=== PATIENT | male | born 1965 | race Caucasian/White ===

== ENCOUNTER 2016-11-18 12:55 | Emergency (ER) | payer MEDICAID ==
[2016-11-18 13:24] VITALS: BP 156/106
[2016-11-18] MEDS ORDERED: Ketorolac 10 MG Tab PO ONE (13:49)
--- NOTE | 2016-11-18 13:51 | EDM.PDOC ---
ED HPI GENERAL MEDICAL PROBLEM - General Chief Complaint: Neck Problem Stated Complaint: NECK PAIN Time Seen by Provider: 11/18/16 13:40 Source of Information: Reports: Patient History Limitations: Reports: No Limitations - History of Present Illness INITIAL COMMENTS - FREE TEXT/NARRATIVE: 51-year-old male with a history of "osteoporosis" but no previous significant spine or neck problems was stepping out of the shower, slipped and tripped his head backwards feeling a pop in his lower neck. This happened within the last 2 hours. He now has significant discomfort locally at the base of the neck, but no paresthesias or weakness to the upper extremities or the rest of his body. No headache, no direct trauma to the neck. Feels dizzy but no nausea or vomiting. He has a history of a cerebral aneurysm repair. He is worried that he may have another one. Onset: Sudden Duration: Hour(s): (Within the last hour) Location: Reports: Neck Quality: Reports: Sharp, Stabbing Severity: Moderate Improves with: Reports: Other (Holding his head still) Worsens with: Reports: Movement Associated Symptoms: Reports: No Other Symptoms Neck Pain Score (Numeric/FACES): 9 - Related Data Allergies Allergy/AdvReac Type Severity Reaction Status Date / Time No Known Allergies Allergy Verified 04/21/15 07:50 Home Meds: Home Meds Aspirin [Children's Aspirin] 81 mg PO DAILY 04/17/15 [History] Metoprolol Succinate [Toprol XL] 25 mg PO DAILY 04/17/15 [History] Multivitamin/Iron/Folic Acid [Centrum Complete Multivit] 1 tab PO DAILY [History] [place]-3 Fatty Acids [Fish Oil] 500 mg PO DAILY 04/17/15 [History] Past Medical History HEENT History: Reports: None Cardiovascular History: Reports: Hypertension Respiratory History: Reports: None Gastrointestinal History: Reports: None Genitourinary History: Reports: None Musculoskeletal History: Reports: Back Pain, Chronic, Osteoarthritis Neurological History: Reports: Other (See Below) Other Neuro History: had a brain aneurysm removed in 2012 at [facility]. Psychiatric History: Reports: Addiction Endocrine/Metabolic History: Reports: None Hematologic History: Reports: None Immunologic History: Reports: None Oncologic (Cancer) History: Reports: None Dermatologic History: Reports: None - Infectious Disease History Infectious Disease History: Reports: Chicken Pox - Past Surgical History Head Surgeries/Procedures: Reports: None HEENT Surgical History: Reports: Tonsillectomy, Other (See Below) Cardiovascular Surgical History: Reports: None Neurological Surgical History: Reports: Other (See Below) Other Neurological Surgeries/Procedures: Brain anyrism clipped off mar 09 2014 Dermatological Surgical History: Reports: None Social & Family History - Family History Family Medical History: Noncontributory HEENT: Reports: None Cardiac: Reports: Hypertension Respiratory: Reports: COPD GI: Reports: None : Reports: None OBGYN: Reports: None Musculoskeletal: Reports: None Neurological: Reports: None Psychiatric: Reports: None Endocrine/Metabolic: Reports: Diabetes, type II Hematologic: Reports: None Immunologic: Reports: None Dermatologic: Reports: Psoriasis Oncologic: Reports: Other (See Below) Other Oncologic Family History: STATES 1 BROTHER OF CANCER BUT DOESN'T KNOW WHAT KIND - Tobacco Use Smoking Status *Q: Light Tobacco Smoker Years of Tobacco use: 25 Packs/Tins Daily: 0.5 Used Tobacco, but Quit: No Month Tobacco Last Used: March Hand Smoke Exposure: No - Caffeine Use Caffeine Use: Reports: Soda - Alcohol Use Days Per Week of Alcohol Use: 1 Number of Drinks Per Day: 2 Total Drinks Per Week: 2 - Recreational Drug Use Recreational Drug Use: No Drug Use in Last 12 Months: Yes Recreational Drug Type: Reports: Methamphetamine Recreational Drug Use Frequency: Monthly Recreational Drug Last Use: couple days ago ED ROS GENERAL - Review of Systems Review Of Systems: See Below Constitutional: Denies: Fever Respiratory: Denies: Shortness of Breath Cardiovascular: Denies: Chest Pain GI/Abdominal: Denies: Abdominal Pain, Nausea, Vomiting Neurological: Reports: Dizziness, Headache Psychiatric: Reports: Anxiety ED EXAM, UPPER BACK/NECK PAIN - Physical Exam Exam: See Below Exam Limited By: No Limitations General Appearance: Alert, No Apparent Distress (Patient looks uncomfortable but is not acutely distressed) Head Exam: Atraumatic Neck Exam: Other (He has palpation tenderness to the paraspinous muscles and over the vertebrae of the lower cervical spine. There is increased pain with abduction of the left arm but no symptoms down the arm, no paresthesias or weakness) Cardiovascular/Respiratory: Regular Rate, Rhythm Neurologic: No Motor/Sensory Deficits, Normal Mood/Affect Psychiatric: Normal Affect, Normal Mood Skin Exam: Normal Color, Warm/Dry Course - Vital Signs Last Recorded V/S: Last Vital Signs Temp 97.2 F 11/18/16 13:24 Pulse 102 H 11/18/16 13:24 Resp 18 11/18/16 13:24 BP 156/106 H 11/18/16 13:24 Pulse Ox 99 11/18/16 13:24 - Orders/Labs/Meds Meds: Medications Discontinued Medications Generic Name Dose Route Start Last Admin Trade Name Abdoulaye PRN Reason Stop Dose Admin Ketorolac Tromethamine 10 mg 11/18/16 13:49 11/18/16 13:58 Toradol PO 11/18/16 13:50 10 mg ONETIME ONE Administration - Re-Assessments/Exams Free Text/Narrative Re-Assessment/Exam: 11/18/16 14:09 Patient refused an injection. He was given 10 mg or Toradol and sent back for a full C-spine series with obliques. 11/18/16 14:40 C-spine series showed arthritis and some foraminal narrowing but no fracture or acute findings. He was given 20 Flexeril to use 3 times a day, 20 Toradol to use every 8 hours and will be placed on 60 mg of prednisone for 4 consecutive days. He should avoid heat to his neck for next 48 hours and increase activity as tolerated. He will return if he develops neurologic symptoms which we discussed. Departure - Departure Time of Disposition: 14:49 Disposition: Home, Self-Care 01 Condition: Good Clinical Impression: Sprain of neck Qualifiers: Encounter type: initial encounter Qualified Code(s): S13.9XXA - Sprain of joints and ligaments of unspecified parts of neck, initial encounter - Discharge Information Instructions: Cervical Sprain, [id number] Referrals: Víctor Lopez PA-C [Primary Care Provider] - Forms: ED Department Discharge Care Plan Goals: Take 3 prednisone pills daily with food with your first meal, ice to the neck down for 2 days and increase activity as tolerated. Use muscle relaxers and pain medications as prescribed. Recheck on if worsening or concerns.
--- NOTE | 2016-11-18 14:32 | CR ---
Cervical Spine Min 4V INDICATION: injury FINDINGS: No prevertebral soft tissue swelling. 3 mm anterolisthesis of C2 on C3. Diffuse degenerativ e disc space narrowing and endplate hypertrophic changes at C4, C5, and C6 interspaces. Mild to moder ate neural foraminal narrowing at C3-4 and C4-5.
== END 2016-11-18 14:49 | disposition home or self-care (01) ==
LOC: JP.ED 12:55
DX: S13.9XXA Sprain of joints and ligaments of unspecified parts of neck, initial encounter (principal); I10 Essential (primary) hypertension; M19.90 Unspecified osteoarthritis, unspecified site; F17.210 Nicotine dependence, cigarettes, uncomplicated; Z98.890 Other specified postprocedural states; Z79.82 Long term (current) use of aspirin; Z79.899 Other long term (current) drug therapy; X58.XXXA Exposure to other specified factors, initial encounter
CPT/HCPCS: 72050; 99284; A9270

== ENCOUNTER 2017-07-16 20:24 | Emergency (ER) | payer MEDICAID ==
[2017-07-16 21:38] VITALS: BP 146/88
--- NOTE | 2017-07-16 22:30 | EDM.PDOC ---
ED HPI GENERAL MEDICAL PROBLEM - General Chief Complaint: General Stated Complaint: REDNESS / PAIN / WARM Time Seen by Provider: 07/16/17 22:22 Source of Information: Reports: Patient, Family, RN Notes Reviewed History Limitations: Reports: No Limitations - History of Present Illness INITIAL COMMENTS - FREE TEXT/NARRATIVE: 52-year-old gentleman presents to the emergency department today with redness and warmth rash developing over his right breast he does have a history of abscess in that area underneath the nipple he states this is developed over the last 24 hours no fevers no shortness of breath Right Chest Pain Score (Numeric/FACES): 6 - Related Data Allergies Allergy/AdvReac Type Severity Reaction Status Date / Time No Known Allergies Allergy Verified 04/21/15 07:50 Home Meds: Home Meds Aspirin [Children's Aspirin] 81 mg PO DAILY 04/17/15 [History] Multivitamin/Iron/Folic Acid [Centrum Complete Multivit] 1 tab PO DAILY [History] Past Medical History Cardiovascular History: Reports: Hypertension Musculoskeletal History: Reports: Back Pain, Chronic, Osteoarthritis Neurological History: Reports: Other (See Below) Other Neuro History: had a brain aneurysm removed in 2012 at [facility]. Psychiatric History: Reports: Addiction, Other (See Below) Other Psychiatric History: methamphetamine - Infectious Disease History Infectious Disease History: Reports: Chicken Pox - Past Surgical History Head Surgeries/Procedures: Reports: None HEENT Surgical History: Reports: Tonsillectomy, Other (See Below) Cardiovascular Surgical History: Reports: None Neurological Surgical History: Reports: Other (See Below) Other Neurological Surgeries/Procedures: Brain anyrism clipped off mar 09 2014 Dermatological Surgical History: Reports: None Social & Family History - Family History Family Medical History: Noncontributory HEENT: Reports: None Cardiac: Reports: Hypertension Respiratory: Reports: COPD GI: Reports: None : Reports: None OBGYN: Reports: None Musculoskeletal: Reports: None Neurological: Reports: None Psychiatric: Reports: None Endocrine/Metabolic: Reports: Diabetes, type II Hematologic: Reports: None Immunologic: Reports: None Dermatologic: Reports: Psoriasis Oncologic: Reports: Other (See Below) Other Oncologic Family History: STATES 1 BROTHER OF CANCER BUT DOESN'T KNOW WHAT KIND - Tobacco Use Smoking Status *Q: Current Every Day Smoker Years of Tobacco use: 30 Packs/Tins Daily: 1 Used Tobacco, but Quit: No Month/Year Tobacco Last Used: MARCH [employer] Hand Smoke Exposure: No - Caffeine Use Caffeine Use: Reports: None - Alcohol Use Days Per Week of Alcohol Use: 1 Number of Drinks Per Day: 2 Total Drinks Per Week: 2 - Recreational Drug Use Recreational Drug Use: No Drug Use in Last 12 Months: Yes Recreational Drug Type: Reports: Methamphetamine Recreational Drug Use Frequency: Monthly Recreational Drug Last Use: couple days ago ED ROS GENERAL - Review of Systems Review Of Systems: See Below Constitutional: Denies: Fever, Chills HEENT: Reports: No Symptoms Respiratory: Reports: No Symptoms Cardiovascular: Reports: No Symptoms GI/Abdominal: Reports: No Symptoms : Reports: No Symptoms Skin: Reports: Pallor, Rash, Erythema ED EXAM, GENERAL - Physical Exam Exam: See Below Free Text/Narrative:: Examination of the chest area there is an erythematous patch approximately about size of a softball firm area underneath the nipple it is tender to the touch it is warm to the touch a surgical scar is clean dry and intact Exam Limited By: No Limitations General Appearance: Alert, WD/WN, No Apparent Distress Respiratory/Chest: No Respiratory Distress, Lungs Clear, Normal Breath Sounds, No Accessory Muscle Use Cardiovascular: Regular Rate, Rhythm, No Murmur Course - Vital Signs Last Recorded V/S: Last Vital Signs Temp 97.1 F 07/16/17 21:57 Pulse 83 07/16/17 21:57 Resp 14 07/16/17 21:57 BP 146/88 H 07/16/17 21:57 Pulse Ox 83 L 07/16/17 21:57 Departure - Departure Time of Disposition: 22:30 Disposition: Home, Self-Care 01 Condition: Good Clinical Impression: Cellulitis Qualifiers: Site of cellulitis: trunk Site of cellulitis of trunk: chest wall Qualified Code(s): L03.313 - Cellulitis of chest wall - Discharge Information Referrals: PCP,None [Primary Care Provider] - Additional Instructions: Take full course of antibiotics, Please followup with your primary care provider in 3-5 days if not better, please call return to the emergency department with worsening of symptoms. - Assessment/Plan Plan: Assessment Acuity = acute Site and laterality = cellulitis left chest Etiology = suspicious for bacterial cause Manifestations = none Location of injury = Home Lab values = none Plan Treat empirically with Bactrim DS 1 tab by mouth twice a day 10 days I'm follow -up with primary care in 3-5 days for reevaluation This note was dictated using Let voice recognition software please call with any questions on syntax or adwoa.
== END 2017-07-16 22:50 | disposition home or self-care (01) ==
LOC: JP.ED 20:24
DX: L03.313 Cellulitis of chest wall (principal); I10 Essential (primary) hypertension; F17.210 Nicotine dependence, cigarettes, uncomplicated; Z79.82 Long term (current) use of aspirin
CPT/HCPCS: 99285

== ENCOUNTER 2018-05-01 13:50 | Emergency (ER) | payer MEDICAID ==
[2018-05-01] MEDS ORDERED: Acetaminophen 500 MG Tab PO ONE (15:25)
--- NOTE | 2018-05-01 15:30 | EDM.PDOC ---
ED HPI GENERAL MEDICAL PROBLEM - General Chief Complaint: General Stated Complaint: HIGH FEVER Time Seen by Provider: 05/01/18 15:15 Source of Information: Reports: Patient, Old Records History Limitations: Reports: No Limitations - History of Present Illness INITIAL COMMENTS - FREE TEXT/NARRATIVE: 53 yo male here with fever, body aches and a rare cough. Sx's began on Friday. No SOB or dysuria or abdominal pain. No rash. Took acetaminophen last yesterday. Has not been to the clinic. Onset: Gradual Onset Date: 04/29/18 Duration: Day(s): (2), Constant Location: Reports: Generalized Quality: Reports: Ache (diffuse) Severity: Moderate Improves with: Reports: Medication Worsens with: Reports: None Context: Reports: Other (unknown, no influenza vaccine) Associated Symptoms: Reports: Cough (dry), Fever/Chills. 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) (none) Generalized Pain Score (Numeric/FACES): 8 - Related Data Allergies Allergy/AdvReac Type Severity Reaction Status Date / Time No Known Allergies Allergy Verified 05/01/18 14:41 Home Meds: Home Meds Aspirin [Children's Aspirin] 81 mg PO DAILY 04/17/15 [History] Multivitamin/Iron/Folic Acid [Centrum Complete Multivit] 1 tab PO DAILY [History] Oseltamivir [Tamiflu] 75 mg PO BID #10 cap 05/01/18 [Rx] Past Medical History HEENT History: Reports: Impaired Vision Cardiovascular History: Reports: Hypertension Respiratory History: Reports: None Gastrointestinal History: Reports: None Genitourinary History: Reports: None Musculoskeletal History: Reports: Back Pain, Chronic, Osteoarthritis Neurological History: Reports: Other (See Below) Other Neuro History: had a brain aneurysm removed in 2012 at [facility]. Psychiatric History: Reports: Addiction, Anxiety, Other (See Below) Other Psychiatric History: methamphetamine Endocrine/Metabolic History: Reports: None Hematologic History: Reports: None Immunologic History: Reports: None Oncologic (Cancer) History: Reports: None Dermatologic History: Reports: None - Infectious Disease History Infectious Disease History: Reports: Chicken Pox - Past Surgical History Head Surgeries/Procedures: Reports: None HEENT Surgical History: Reports: Tonsillectomy, Other (See Below) Cardiovascular Surgical History: Reports: None Neurological Surgical History: Reports: Other (See Below) Other Neurological Surgeries/Procedures: Brain anyrism clipped off mar 09 2014 Musculoskeletal Surgical History: Reports: None Dermatological Surgical History: Reports: None Social & Family History - Family History Family Medical History: Noncontributory HEENT: Reports: None Cardiac: Reports: Hypertension Respiratory: Reports: COPD GI: Reports: None : Reports: None OBGYN: Reports: None Musculoskeletal: Reports: None Neurological: Reports: None Psychiatric: Reports: None Endocrine/Metabolic: Reports: Diabetes, type II Hematologic: Reports: None Immunologic: Reports: None Dermatologic: Reports: Psoriasis Oncologic: Reports: Other (See Below) Other Oncologic Family History: STATES 1 BROTHER OF CANCER BUT DOESN'T KNOW WHAT KIND - Tobacco Use Smoking Status *Q: Current Every Day Smoker Years of Tobacco use: 35 Packs/Tins Daily: 1 - Caffeine Use Caffeine Use: Reports: None - Recreational Drug Use Recreational Drug Use: No ED ROS GENERAL - Review of Systems Review Of Systems: See Below Constitutional: Reports: No Symptoms HEENT: Reports: Rhinitis (minimal) Respiratory: Reports: Cough. Denies: Shortness of Breath, Wheezing, Pleuritic Chest Pain, Sputum, Hemoptysis Cardiovascular: Reports: No Symptoms Endocrine: Reports: No Symptoms GI/Abdominal: Reports: No Symptoms : Reports: No Symptoms Musculoskeletal: Reports: No Symptoms Skin: Reports: No Symptoms Neurological: Reports: No Symptoms ED EXAM, GENERAL - Physical Exam Exam: See Below Exam Limited By: No Limitations General Appearance: Alert, WD/WN, No Apparent Distress Eye Exam: Bilateral Eye: EOMI, Normal Inspection, PERRL Ears: Normal External Exam, Normal Canal, Hearing Grossly Normal, Normal TMs Ear Exam: Bilateral Ear: Auricle Normal, Canal Normal, TM normal Nose: Normal Inspection, Normal Mucosa, No Blood Throat/Mouth: Normal Inspection, Normal Lips, Normal Oropharynx, Normal Voice, No Airway Compromise Head: Atraumatic, Normocephalic Neck: Normal Inspection, Supple, Non-Tender Respiratory/Chest: No Respiratory Distress, Lungs Clear, Normal Breath Sounds, No Accessory Muscle Use Cardiovascular: Regular Rate, Rhythm, No Edema GI/Abdominal: Normal Bowel Sounds, Soft, Non-Tender, No Distention (Male) Exam: Normal Inspection Back Exam: Normal Inspection. No: CVA Tenderness (R), CVA Tenderness (L) Extremities: Normal Inspection, Normal Range of Motion, Non-Tender, No Pedal Edema Neurological: Alert, Oriented, CN II-XII Intact, Normal Cognition, No Motor/ Sensory Deficits Psychiatric: Normal Affect, Normal Mood Skin Exam: Warm, Dry, Intact, Normal Color, No Rash Course - Vital Signs Last Recorded V/S: Last Vital Signs Temp 38.2 C H 05/01/18 15:38 Pulse 99 05/01/18 14:54 Resp 16 05/01/18 14:42 BP 142/99 H 05/01/18 14:54 Pulse Ox 99 05/01/18 14:54 - Orders/Labs/Meds Labs: Laboratory Tests 05/01/18 Range/Units 15:36 WBC 6.9 (4.5-11.0) K/uL RBC 5.07 (4.30-5.90) M/uL Hgb 15.1 H (12.0-15.0) g/dL Hct 45.7 (40.0-54.0) % MCV 90 (80-98) fL MCH 30 (27-31) pg MCHC 33 (32-36) % Plt Count 208 (150-400) K/uL Meds: Medications Discontinued Medications Generic Name Dose Route Start Last Admin Trade Name Abdoulaye PRN Reason Stop Dose Admin Acetaminophen 1,000 mg 05/01/18 15:25 05/01/18 15:37 Tylenol Extra Strength PO 05/01/18 15:26 1,000 mg ONETIME ONE Administration Departure - Departure Time of Disposition: 16:02 Disposition: Home, Self-Care 01 Condition: Fair Clinical Impression: Influenza A - Discharge Information *PRESCRIPTION DRUG MONITORING PROGRAM REVIEWED*: Not Applicable *COPY OF PRESCRIPTION DRUG MONITORING REPORT IN PATIENT BENNY: Not Applicable Prescriptions: Oseltamivir [Tamiflu] 75 mg PO BID #10 cap Instructions: Influenza, Adult, [id number] Referrals: PCP,None [Primary Care Provider] - Forms: ED Department Discharge Additional Instructions: Take acetaminophen 1000 mg every 6 hrs and/or ibuprofen 600 mg every 6 hrs with food as needed for pain/fever control. Rest. Drink lots of fluids. Take Tamiflu as directed until gone. Frequent hand washing to prevent spread. Stay out of public places for the next 3-4 days at least. Recheck if worse.
[2018-05-01 16:18] VITALS: BP 141/89
== END 2018-05-01 16:22 | disposition home or self-care (01) ==
LOC: JP.ED 13:50
DX: J10.1 Influenza due to other identified influenza virus with other respiratory manifestations (principal); F17.210 Nicotine dependence, cigarettes, uncomplicated; I10 Essential (primary) hypertension; Z79.82 Long term (current) use of aspirin; Z79.899 Other long term (current) drug therapy
CPT/HCPCS: 36415; 85027; 87804; 99284; A9270